=== PATIENT | female | born 1990 | race Caucasian/White ===

== ENCOUNTER 2017-10-24 11:32 | Emergency (ER) | payer OTHER ==
[2017-10-24 11:48] VITALS: BMI 23.0
--- NOTE | 2017-10-24 12:05 | PDOC ---
History of Present Illness - General Chief Complaint: Pain Stated Complaint: ABD PAIN, NAUSEA Time Seen by Provider: 10/24/17 11:55 History Source: Patient Exam Limitations: No Limitations - History of Present Illness Initial Comments: CHIEF COMPLAINT: 27 y/o afebrile female with no significant PMH c/o nausea, vomiting and abdominal pain x 1 week. HISTORY OF PRESENT ILLNESS: the patient states she has been able to keep food and liquid down but just always feels nauseous. she denies f/c, cough, Cp, SOB , back pain, hematuria, dysuria. Vital signs on arrival are within normal limits. REVIEW OF SYSTEMS: GENERAL/CONSTITUTIONAL: No fever/chills. No weakness. No weight change. HEAD, EYES, EARS, NOSE AND THROAT: No change in vision. No ear pain or discharge. No sore throat. CARDIOVASCULAR: No chest pain or shortness of breath. RESPIRATORY: No cough, wheezing, or hemoptysis. GASTROINTESTINAL: +abd pain, nausea, vomiting. No diarrhea or constipation. GENITOURINARY: No dysuria, frequency, or change in urination. MUSCULOSKELETAL: No joint or muscle swelling or pain. No neck or back pain. SKIN: No rash or easy bruising. NEUROLOGIC: No headache, vertigo, loss of consciousness, or loss of sensation. PHYSICAL EXAM: GENERAL: The patient is awake, alert, and fully oriented, in no acute distress. she is well appearing and ambulatory. HEAD: Normal with no signs of trauma. ENT: Pupils equal, round and reactive to light, extraocular movements intact, sclera anicteric, conjunctiva clear. Neck supple. LUNGS: Clear to auscultation bilaterally. Normal excursion. No respiratory distress or use of accessory muscles. CV: RRR, S1/S2, no MRG. Cap refill < 2 sec. ABDOMEN: Soft, non-distended, TTP of epigastric region, RUQ, RLQ, right pelvis. +collier's sign. No rebound, guarding or rigidity. Negative cristian's, psoas and obturator signs. BACK: No CVA TTP b/l. EXTREMITIES: Normal range of motion, no edema. NEUROLOGICAL: Normal speech, normal gait. CN II-XII grossly intact. SKIN: Warm, dry, normal turgor, no rashes or lesions noted. Past History - Past Medical History Allergies/Adverse Reactions: Allergies Allergy/AdvReac Type Severity Reaction Status Date / Time No Known Allergies Allergy Verified 10/24/17 11:44 Home Medications: Ambulatory Orders NK [No Known Home Medication] 10/24/17 - Suicide/Smoking/Psychosocial Hx Smoking History: Never smoked Hx Alcohol Use: No Drug/Substance Use Hx: No *Physical Exam - Vital Signs Last Vital Signs Temp Pulse Resp BP Pulse Ox 98.2 F 74 18 107/74 99 10/24/17 11:38 10/24/17 11:38 10/24/17 11:38 10/24/17 11:38 10/24/17 11:38 ED Treatment Course - LABORATORY CBC & Chemistry Diagram: 10/24/17 12:46 10/24/17 12:46 Medical Decision Making - Medical Decision Making A/P: 27 y/o female with abdominal pain and nausea x 1 week with intermittent vomiting. Plan is as follows: 1. Labs 2. UA/culture/hcg 3. Gallbladder ultrasound 4. IV fluids Gallbladder Ultrasound IMPRESSION: Unremarkable exam Labs unremarkable Patient signed out to Dr. Mattson *DC/Admit/Observation/Transfer Diagnosis at time of Disposition: Ovarian cyst, right - Discharge Dispostion Disposition: HOME Condition at time of disposition: Improved - Referrals Referrals: Placido Rayo MD [Staff Physician] - - Patient Instructions Printed Discharge Instructions: DI for Ovarian Cyst Additional Instructions: Return to the emergency department immediately with ANY new, persistent or worsening symptoms including worsening abdominal pain, fevers, inability to tolerate oral intake, chest pain, shortness of breath or any other concerns. Stay well hydrated. You MUST call and follow up with your obgyn within 1 week for further evaluation. Your emergency department visit is not complete without a followup with your doctor for reevaluation. Please make sure your doctor reviews the results of your emergency evaluation. Print Language: GUAMANIAN - Post Discharge Activity
[2017-10-24] MEDS ORDERED: SODIUM CHLORIDE 1,000 ML IV STA (12:43)
[2017-10-24 13:19] LABS: BASO % 0.4 % (0-2.0); EOS % 1.3 % (0-4.5); HEMATOCRIT 38.8 % (32.4-45.2); HEMOGLOBIN 13.2 GM/dL (10.7-15.3); MCH 27.8 pg (25.7-33.7); MCHC 34.1 g/dl (32.0-36.0); MEAN CELL VOLUME 81.6 fl (80-96); MEAN PLT VOLUME 8.6 fl (7.5-11.1); MONO % 9.3 % (3.8-10.2); PLATELET COUNT 207 K/MM3 (134-434); RBC 4.75 M/mm3 (3.60-5.2); RDW 13.8 % (11.6-15.6); WHITE BLOOD COUNT 6.1 K/mm3 (4.0-10.0)
[2017-10-24 13:52] LABS: ALBUMIN 4.3 g/dl (3.4-5.0); ANION GAP 5 (8-16); BLOOD UREA NITROGEN 10 mg/dL (7-18); CALCIUM 9.3 mg/dL (8.5-10.1); CHLORIDE 104 mmol/L (98-107); CO2 30 mmol/L (21-32); CREATININE 0.7 mg/dL (0.55-1.02); GLUCOSE,RANDOM 86 mg/dL (74-106); LIPASE 149 U/L (73-393); POTASSIUM 4.3 mmol/L (3.5-5.1); SGOT/AST 13 U/L (15-37); SGPT/ALT 24 U/L (12-78); SODIUM 139 mmol/L (136-145); TOT PROT 7.9 g/dl (6.4-8.2)
[2017-10-24 13:53] LABS: ALK PHOS 105 U/L (45-117)
[2017-10-24 14:34] LABS: HCG,QUALITATIVE URINE NEGATIVE
[2017-10-24 14:44] LABS: URINE APPEARANCE CLEAR; URINE BILIRUBIN NEGATIVE (<2.0 mg/dL); URINE COLOR LTYELLOW; URINE GLUCOSE (UA) NEGATIVE (NEGATIVE); URINE KETONE NEGATIVE (NEGATIVE); URINE NITRITE NEGATIVE (NEGATIVE); URINE PROTEIN NEGATIVE (NEGATIVE); URINE UROBILINOGEN NEGATIVE mg/dL (0.2-1.0)
[2017-10-24 14:48] LABS: URINE LEUK ESTERASE 1+ (NEGATIVE)
[2017-10-24 14:49] LABS: EPI CELLS RARE /HPF (FEW)
[2017-10-24] MEDS ORDERED: KETOROLAC TROMETHAMINE 30 MG/1 ML VIAL IVPUSH ONE (14:49)
[2017-10-24] MEDS ORDERED: KETOROLAC TROMETHAMINE 30 MG/1 ML VIAL ONE (14:58)
[2017-10-24] MEDS ORDERED: ONDANSETRON 4 MG/2 ML VIAL ONE (15:15)
[2017-10-24] MEDS ORDERED: ONDANSETRON 4 MG/2 ML VIAL IVPUSH ONE (15:30)
--- NOTE | 2017-10-24 16:38 | PDOC ---
*Physical Exam - Vital Signs Last Vital Signs Temp Pulse Resp BP Pulse Ox 98.2 F 74 18 107/74 99 10/24/17 11:38 10/24/17 11:38 10/24/17 11:38 10/24/17 11:38 10/24/17 11:38 ED Treatment Course - LABORATORY CBC & Chemistry Diagram: 10/24/17 12:46 10/24/17 12:46 - ADDITIONAL ORDERS Additional order review: Laboratory Results 10/24/17 10/24/17 13:26 12:46 Sodium 139 Potassium 4.3 Chloride 104 Carbon Dioxide 30 Anion Gap 5 L BUN 10 Creatinine 0.7 Creat Clearance w eGFR > 60 Random Glucose 86 Calcium 9.3 Total Bilirubin 1.0 AST 13 L ALT 24 Alkaline Phosphatase 105 Total Protein 7.9 Albumin 4.3 Lipase 149 Urine Color Ltyellow Urine Appearance Clear Urine pH 6.0 Ur Specific Galvin 1.013 Urine Protein Negative Urine Glucose (UA) Negative Urine Ketones Negative Urine Blood Negative Urine Nitrite Negative Urine Bilirubin Negative Urine Urobilinogen Negative Ur Leukocyte Esterase 1+ H Urine WBC (Auto) 2 Urine RBC (Auto) 1 Ur Epithelial Cells Rare Urine HCG, Qual Negative 10/24/17 12:46 RBC 4.75 MCV 81.6 MCHC 34.1 RDW 13.8 MPV 8.6 Neutrophils % 62.0 Lymphocytes % 27.0 Monocytes % 9.3 Eosinophils % 1.3 Basophils % 0.4 - RADIOLOGY Radiology Studies Ordered: Category Date Time Status ABDOMEN & PELVIS CT WITH CONTR [CT] Stat CT Scan 10/24/17 16:37 Ordered - Medications Given in the ED: ED Medications Discontinued Medications Generic Name Dose Route Start Last Admin Trade Name Enriqueq PRN Reason Stop Dose Admin Sodium Chloride 1,000 mls @ 1,000 mls/hr 10/24/17 12:43 10/24/17 12:46 Normal Saline - IV 10/24/17 13:42 1,000 mls/hr ASDIR STA Administration Ketorolac Tromethamine 30 mg 10/24/17 14:49 10/24/17 15:02 Toradol Injection - IVPUSH 10/24/17 14:50 30 mg ONCE ONE Administration Ondansetron HCl 4 mg 10/24/17 15:30 10/24/17 15:36 Zofran Injection IVPUSH 10/24/17 15:31 4 mg ONCE ONE Administration Medical Decision Making - Medical Decision Making 10/24/17 16:37 pt still with RLQ pain will obtain ct abd 10/24/17 18:07 27y F presenting with RLQ pain w/o associated n/v, fever/chills, vg bleeding, occasionally is in the epigastrium. pt notes she occsaionally has had pain in the past in [place] a [employer] and then was referred to GI with neg workup. pts pain in the rlq is constant pt statesshe is currently feeling improved CT noted for R ovary with cystic changes with some free fluid suspect pts secondary to her cyst will refer pt to [employer] [place] [employer] for further mangaement return precautions were discussed I discussed the physical exam findings, ancillary test results and final diagnoses with the patient. I answered all of the patient's questions. The patient was satisfied with the care received and felt comfortable with the discharge plan and treatment plan. The patient will call their primary care physician within 24 hours to arrange follow-up and will return to the Emergency Department with any new, persistent or worsening symptoms. *DC/Admit/Observation/Transfer Diagnosis at time of Disposition: Ovarian cyst, right - Discharge Dispostion Disposition: HOME Condition at time of disposition: Improved Decision to Admit order: No - Referrals Referrals: Placido Rayo MD [Staff Physician] - - Patient Instructions Printed Discharge Instructions: DI for Ovarian Cyst Additional Instructions: Return to the emergency department immediately with ANY new, persistent or worsening symptoms including worsening abdominal pain, fevers, inability to tolerate oral intake, chest pain, shortness of breath or any other concerns. Stay well hydrated. You MUST call and follow up with your obgyn within 1 week for further evaluation. Your emergency department visit is not complete without a followup with your doctor for reevaluation. Please make sure your doctor reviews the results of your emergency evaluation. Print Language: DANISH - Post Discharge Activity
[2017-10-24 18:34] VITALS: BP 123/74; PULSE 77; TEMP 98.1
== END 2017-10-24 18:15 | disposition home or self-care (01) ==
LOC: JER 11:32
PROC: 3E0337Z Introduction of Electrolytic and Water Balance Substance into Peripheral Vein, Percutaneous Approach (ICD-10-PCS; principal; 2017-10-24)
PROC: 3E033GC Introduction of Other Therapeutic Substance into Peripheral Vein, Percutaneous Approach (ICD-10-PCS; 2017-10-24)
PROC: 3E0333Z Introduction of Anti-inflammatory into Peripheral Vein, Percutaneous Approach (ICD-10-PCS; 2017-10-24)
DX: N83.201 Unspecified ovarian cyst, right side (principal)
CPT/HCPCS: 36415; 74177-TC; 76705-TC; 80053; 81003; 81015; 83690; 84703; 85025; 87086; 99283-25; J7030